=== PATIENT | female | born 1990 | race Caucasian/White ===

== ENCOUNTER 2016-05-01 12:12 | Outpatient (CLI) | payer BC, OTHER ==
[~2016-05-01] VITALS: Ht 160 cm; Wt 108.9 kg
[~2016-05-01 12:12] MED LIST: BENZ56AE TP; CEPH500C PO; CODE-54 PO; DBC1O30 TOP; DCS100C PO; FRS325T PO; IBP600T1 PO; PREN1TAB25 PO
--- OUTSIDE RECORDS SUMMARY | 2016-05-01 12:17 | XMS REPORT | Continuity of Care Document ---
Author Author [facility] Organization [facility] Address Unknown Phone Unavailable Allergies Active Description Code Type Severity Reaction Onset Reported/Identified Relationship to Patient Clinical Status Yes No Known Drug Allergies [id number] Drug Allergy Unknown N/ A 03/16/2014 Medications Problems Date Dx Coded Attending Type Code Diagnosis Diagnosed By 03/16/2014 KYA VARGAS DO Ot 599.0 03/16/2014 KYA VARGAS DO Ot 642.33 03/16/2014 KYA VARGAS DO Ot 646.63 03/16/2014 KYA VARGAS DO Ot 646.83 03/16/2014 KYA VARGAS DO Ot 784.0 03/25/2014 KYA VARGAS DO Ot 796.2 03/28/2014 KYA VARGAS DO Ot 216.5 BENIGN TERESO SKIN TRUNK 03/28/2014 KYA VARGAS DO Ot 285.1 AC POSTHEMORRHAG ANEMIA 03/28/2014 KYA VARGAS DO Ot 642.31 TRANS HYPERTEN-DELIVERED 03/28/2014 KYA VARGAS DO Ot 648.21 ANEMIA-DELIVERED 03/28/2014 KYA VARGAS DO Ot 658.21 PROLONG RUPT MEMB-DELIV 03/28/2014 KYA VARGAS DO Ot 664.21 DEL W 3 DEG LACERAT-DEL 03/28/2014 KYA VARGAS DO Ot V06.1 [id number], COMBINED [ 03/28/2014 KYA VARGAS DO Ot V06.4 [id number] 03/28/2014 KYA VARGAS DO Ot V27.0 DELIVER-SINGLE LIVEBORN 04/03/2014 KYA VARGAS DO Ot 796.2 Procedures Code Description Performed By Performed On 73.4 03/27/2014 75.62 03/27/2014 86.3 03/27/2014 Results Encounters ACCT No. Visit Date/Time Discharge Status Pt. Type Provider Facility Loc./Unit Complaint [id number] 03/25/2014 17:45:00 2014 12:45:00 DIS Inpatient KYA VARGAS DO [facility] LDRP INDUCTION [id number] 03/18/2014 07:30:00 2014 23:59:59 CLS Outpatient KYA VARGAS DO [facility] LAB [id number] 03/16/2014 20:29:00 2014 22:55:00 DIS Outpatient KYA VARGAS DO [facility] WSo [id number] 05/01/2016 12:12:00 ACT Outpatient BRAD MORRIS, KEV [facility] BABY NOT MOVING
[2016-05-01 12:25] VITALS: BP 140/78
[2016-05-01] MEDS ORDERED: OSLT75C PO (13:10)
--- NOTE | 2016-05-02 15:18 | Physician Query-Final Dx ---
ASHELY ROMO 05/02/16 1518: Clinic Account Progress/Dx Physician Query: Please give diagnosis Date of Service May 01, 2016 at 12:12 KEV SALINAS MD 05/03/16 0825: Clinic Account Progress/Dx DIAGNOSIS: Diagnosis decreased movement ASHELY ROMO May 02, 2016 15:18 KEV SALINAS MD May 03, 2016 08:25
[2016-06-03] MEDS ORDERED: IBUP-1773 PO (04:08)
[2016-06-03] MEDS ORDERED: BENZ56AE2 TP (04:08)
[2016-06-03] MEDS ORDERED: ACET1TAB43 PO (04:08)
[2016-06-03] MEDS ORDERED: DOCU100C37 PO (04:08)
== END 2016-05-01 13:18 | disposition home or self-care (01) ==
LOC: WSo 12:12 → LDRP 12:12 → WSo 13:18
PROVIDERS: ATTEND Obstetrics & Gynecology
DX: O36.8130 Decreased fetal movements, third trimester, not applicable or unspecified (principal); Z3A.35 35 weeks gestation of pregnancy
CPT/HCPCS: 99214

== ENCOUNTER 2016-06-02 15:15 | Inpatient (IN) | payer BC ==
[~2016-06-02] VITALS: Ht 160 cm; Wt 110.2 kg
[~2016-06-02 15:15] MED LIST changes: +OSLT75C PO
[2016-06-02] MEDS ORDERED: D5 LR IV SOLUTION 1,000 ML IV ONE (17:49)
[2016-06-02] MEDS ORDERED: MISOPROSTOL 100 MCG (CYTOTEC) TAB ONE (17:49)
[2016-06-02] MEDS ORDERED: MINERAL OIL CONCENTRATE 99.9% 15 ML UDC TOP PRN (18:00)
[2016-06-02] MEDS ORDERED: MISOPROSTOL 100 MCG (CYTOTEC) TAB PO NR (18:00)
[2016-06-02 18:01] LABS: BASOPHILS % (AUTO) 0 % (0-10); EOSINOPHILS # (AUTO) 0.1 10^3/uL (0.0-0.3); EOSINOPHILS % (AUTO) 1 % (0-10); LYMPHOCYTES # (AUTO) 1.8 X 10^3 (1.0-4.0); LYMPHOCYTES % (AUTO) 17 % (12-44); MEAN CORPUSCULAR HEMOGLOBIN 29 PG (25-34); MEAN CORPUSCULAR HGB CONC 34 G/DL (32-36); MEAN CORPUSCULAR VOLUME 84 FL (80-99); MEAN PLATELET VOLUME 10.8 FL (7.4-10.4); MONOCYTES # (AUTO) 0.5 X 10^3 (0.0-1.0); MONOCYTES % (AUTO) 5 % (0-12); NEUTROPHILS # (AUTO) 8.6 X 10^3 (1.8-7.8); NEUTROPHILS % (AUTO) 78 % (42-75); PLATELET COUNT 247 10^3/uL (130-400); RED BLOOD COUNT 4.23 10^6/uL (4.35-5.85); RED CELL DISTRIBUTION WIDTH 14.1 % (10.0-14.5)
[2016-06-02] MEDS: D5 LR IV SOLUTION 1,000 ML IV SCH (18:05)
[2016-06-02 19:27] VITALS: BP 133/87
[2016-06-02 20:27] VITALS: BP 127/84
[2016-06-02 21:28] VITALS: BP 118/80
[2016-06-02] MEDS ORDERED: CATHETER FLUSH 10 ML SYR IV SCH (22:00)
[2016-06-02] MEDS ORDERED: MISOPROSTOL 100 MCG (CYTOTEC) TAB PO SCH (22:00)
[2016-06-02 22:15] VITALS: BP 137/83
[2016-06-02 23:15] VITALS: BP 139/81
[2016-06-02] MEDS ORDERED: HYDROmorphone (DILAUDID) 2 MG/ML VIAL IVP ONE (23:15)
[2016-06-02] MEDS ORDERED: LACTATED RINGERS 1,000 ML IV SCH (23:20)
[2016-06-03] VITALS (30 sets, daily range): BP systolic 102–168; BP diastolic 52–108
[2016-06-03] MEDS ORDERED: SUFENTA 0.6MCG/ML BUPIVA 0.125 100 ML ONE (00:51)
[2016-06-03] MEDS ORDERED: fentaNYL INJECTION 100 MCG/2 ML AMP ONE (01:32)
[2016-06-03] MEDS ORDERED: BUPIVACAINE 0.25% 30 ML (SENSORCAINE) VIAL ONE (01:32)
[2016-06-03] MEDS: D5 LR IV SOLUTION 1,000 ML IV SCH (01:51)
[2016-06-03] MEDS ORDERED: LACTATED RINGERS 1,000 ML IV ONE (02:37)
[2016-06-03] MEDS ORDERED: LACTATED RINGERS 1,000 ML IV SCH (02:39)
[2016-06-03] MEDS ORDERED: CATHETER FLUSH 10 ML SYR IV PRN (02:45)
[2016-06-03] MEDS ORDERED: EPIDURAL (SUFENTA 0.6MCG/ML BUPIVA 0.125%) 100 ML BAG EPI SCH (02:45)
[2016-06-03] MEDS ORDERED: ONDANSETRON 4 MG/2 ML (SDV) Z0FRAN IV PRN (02:45)
[2016-06-03] MEDS ORDERED: METOCLOPRAMIDE INJ 10 MG/2 ML (REGLAN) IV PRN (02:45)
[2016-06-03] MEDS ORDERED: diphenhydrAMINE 50 MG/ML INJ (BENADRYL) IV PRN (02:45)
[2016-06-03] MEDS ORDERED: NALOXONE 0.4 MG/ML 1 ML (NARCAN) VIAL IV PRN ×3 (02:45)
[2016-06-03] MEDS ORDERED: EPIDURAL (SUFENTA 0.6MCG/ML BUPIVA 0.125%) 100 ML BAG EPI PRN (02:45)
[2016-06-03] MEDS ORDERED: OXYTOCIN/NORMAL SALINE 500 ML IV ONE (03:13)
[2016-06-03] MEDS ORDERED: LIDOCAINE/EPI 1%-1:200,000 (XYLOCAINE) 30 ML VIAL ONE (03:25)
[2016-06-03] MEDS: OXYTOCIN/NORMAL SALINE 500 ML IV SCH ×2 (03:39→04:14)
[2016-06-03] MEDS ORDERED: BENZOCAINE/MENTHOL (DERMOPLAST) 56 ML CAN TP PRN (04:00)
[2016-06-03] MEDS ORDERED: MEASLES,MUMPS,RUBELLA 1 EA INJ SQ ONE (04:00)
[2016-06-03] MEDS ORDERED: DIBUCAINE (NUPERCAINAL) 1% OINT 30 GM TOP PRN (04:00)
[2016-06-03] MEDS ORDERED: TETANUS,DIPTH,PERTUSS P/F (BOOSTRIX) 0.5 ML VIAL IM ONE (04:00)
--- NOTE | 2016-06-03 04:01 | History & Physical-OB ---
OB - Chief Complaint & HPI Date Date of Admission: Date of Admission: Jun 02, 2016 at 16:50 Chief Complaint/History OB-Reason for Admission/Chief: Induction of Labor Hx : 2 Hx Para: 1 Expected Date of Delivery: Jun 02, 2016 Gestational Age in Weeks: 40 Indication for induction: post dates, other (GHTN) Other reason for admission: Induction of labor for GHTN and Postdates Admission Nurse Assessment Rev: Yes History of Labs O pos Antibody neg RI RPR NR HBsAg NR HIV NR GC neg GBS neg Allergies and Home Medications Allergies Coded Allergies: No Known Drug Allergies (Unverified , 03/16/14) Home Medications Oseltamivir Phosphate 75 Mg Cap, 75 MG PO BID for 5 Days, (Reported) Vit#96/Ferrous Fum/Fa 1 Each Tablet, 1 EACH PO DAILY, (Reported) OB - History Hx of Present Care: Yes Ultrasounds: Normal mid trimester US Obstetrical Complications: None Medical Complications: None Obstetrical History Hx Termination: No Hx Multiple Gestation: No Hx Stillbirth: No Hx Complication: No Hx Induced Hypertens: Yes Hx Maternal Gestational Diabet: No Delivery History Hx Dystocia: No Hx Large For Gestational Age I: No Hx Small for Gestational Age I: No Hx Section: No Hx Vaginal Delivery Post C-Sec: No Hx Blood Disorders: No Adverse Rxn to Tranfusion: No Patient Past Medical History n/a Social History/Family History HIV/AIDS: No Recent Infectious Disease Expo: No Sexually Transmitted Disease: No Alcohol Use: Denies Use Recreational Drug Use: No Immunizations Hepatitis A: Yes Hepatitis B: Yes Date of Influenza Vaccine: Jan 02, 2016 OB - Admission Exam Physical Exam Vitals: Vital Signs 06/02/16 06/02/16 22:15 23:15 Temp 98.9 Pulse 77 Resp 18 B/P (MAP) 139/81 O2 Delivery Room Air HEENT: NCAT Heart: Rhythm Normal Lungs: Clear Abdomen: Gravid Extremities: Normal Reflexes: Normal Cervical Dilatation: 1cm Effacement: 75% Station: -2 Membranes: Intact Heart Rate: 130's Accelerations: Accelerations Present Decelerations: No Decelerations Short Term Variability: Present Fpc Variability: Average (6-25) Contractions on Admission: >10 Minutes Apart Intensity: Mild Fraga Scoring Tool (Modified) Dilation (cm): 1-2cm (1) Effacement (%): 51-79% (2) Descent/Station: -1,0 (2) Cervix Consistency: Soft (2) Cervix Position: Anterior (2) Fraga Score: 9 Labs Laboratory Tests Test 06/02/16 17:25 Range/Units White Blood Count 11.0 4.3-11.0 10^3/uL Red Blood Count 4.23 L 4.35-5.85 10^6/uL Hemoglobin 12.2 11.5-16.0 G/DL Hematocrit 36 35-52 % Mean Corpuscular Volume 84 80-99 FL Mean Corpuscular Hemoglobin 29 25-34 PG Mean Corpuscular Hemoglobin Concent 34 32-36 G/DL Red Cell Distribution Width 14.1 10.0-14.5 % Platelet Count 247 130-400 10^3/uL Mean Platelet Volume 10.8 H 7.4-10.4 FL Neutrophils (%) (Auto) 78 H 42-75 % Lymphocytes (%) (Auto) 17 12-44 % Monocytes (%) (Auto) 5 0-12 % Eosinophils (%) (Auto) 1 0-10 % Basophils (%) (Auto) 0 0-10 % Neutrophils # (Auto) 8.6 H 1.8-7.8 X 10^3 Lymphocytes # (Auto) 1.8 1.0-4.0 X 10^3 Monocytes # (Auto) 0.5 0.0-1.0 X 10^3 Eosinophils # (Auto) 0.1 0.0-0.3 10^3/uL Basophils # (Auto) 0.0 0.0-0.1 10^3/uL OB - Assessment/Plan/Diagnosis Assessment Assessment: induction of labor Plan Induction Method: per Misoprostol Protocol Discharge Diagnosis Diagnosis: 26 yo @ 40.0 GHTN Postdates GBS neg KYA VARGAS DO Jun 03, 2016 04:01
--- NOTE | 2016-06-03 04:06 | OB Labor & Delivery Record ---
L&D History Date of Service Date of Service: Jun 03, 2016 History Expected Date of Delivery: Jun 02, 2016 Gestational Age in Weeks: 40 Hx : 2 Hx Para: 1 Complications Events: Routine care Operative Indications (Cesarea: N/A-Vaginal Delivery Intrapartal Events: None L&D Stage1 Stage One Onset of Labor - Date: Jun 02, 2016 Monitors and Tracing Monitor Mode: External Heart Rate: 135 Monitor Accelerations: Uniform Monitor Decelerations: None Station: -2 Short Term Variability: Present Presentation: Vertex Vital Signs VS - Last 72 Hours, by Label 06/02/16 06/02/16 06/02/16 06/02/16 19:27 20:27 21:28 22:15 Temp 98.4 98.9 Pulse 86 82 75 90 Resp 18 18 18 18 B/P (MAP) 133/87 127/84 118/80 137/83 O2 Delivery Room Air Room Air Room Air Room Air 06/02/16 23:15 Pulse 77 Resp 18 B/P (MAP) 139/81 O2 Delivery Room Air Rupture of Membranes Spontaneous Ruture of Membrane: Yes Amniotic Membrane Rupture Time: 02:00 Amniotic Membrane Fluid Desc.: Meconium Stained Vaginal Bleeding Description: Normal Show Induction/Anesthesia Epidural Cath Placement - Time: 0145 Progress/Notes Patient was given one dose of oral misoprostol 100 mcg, and progressed into an active labor pattern, she received an epidural at 4 cm dilatation L&D Stage2 Stage Two Stage II Date: Jun 03, 2016 Monitors and Tracing Monitor Mode: External Heart Rate: 135 Monitor Accelerations: Uniform Monitor Decelerations: Variable Applications Coordinator Variability: Average (6-10) Short Term Variability: Present Position: Right Occiput Anterior Presentation: Vertex Cord Descript/Complications Cord Vessel Description: 3 Vessels Delivery Type Infant Delivery Method: Spontaneous Vaginal Anterior Shoulder: Left Episiotomy/Perineal Laceration Laceraction(s)/Extensions: Yes Episiotomy Description: Midline, Perineal Extension/lac, 2nd degree Location Modifier: Medial Sutures Used: Vicryl Degree (describe repair) midline laceration repaired using 3-0 and 2-0 vicryl suture in normal fashion Condition of Infant Delivery 1 minute Comment: 9 5 minute Comment: 9 Notes live male , weight 8lbs Condition of Condition of Infant: Living Exam: No Observed Abnormalities Resuscitation Resuscitation: N/A - Spontaneous Resp L&D Stage3 Stage Three Stage III Date: Jun 03, 2016 Pictocin Pitocin Administration Comment: wide open 30 mu after delivery of placenta Placenta Delivery Placenta Delivery: Spontaneous Delivery Summary Summary blood loss >1000ml: No Vaginal blood loss >500ml: No 350 mL Attending at delivery: Kya Vargas DO Condition of Delivery Examined: Cervix Examined, Uterus Explored Post Hemorrhage: No Condition of Mother stable Condition of Infant (s) stable KYA VARGAS DO Jun 03, 2016 04:05
[2016-06-03] MEDS ORDERED: ACET1TAB43 PO (04:08)
[2016-06-03] MEDS ORDERED: BENZ56AE2 TP (04:08)
[2016-06-03] MEDS ORDERED: DOCU100C37 PO (04:08)
[2016-06-03] MEDS ORDERED: IBUP-1773 PO (04:08)
--- NOTE | 2016-06-03 04:09 | Discharge Inst-Women's Service ---
Discharge Inst-Women's Serv Depart Medication/Instructions New, Converted or Re-Newed RX: RX on Chart Consults/Follow Up Additional Follow Up: Yes Orders/Referrals Dr. Vargas in 6 weeks Activity Activity: Activity as Tolerated Driving Instructions: No Driving for 1 Week NO SMOKING: NO SMOKING Nothing Inside Vagina: No Douching, No [place], No Tampons Diet Discharge Diet: No Restrictions Symptoms to Report to : Bleeding Excessive, Pain Increased, Fever Over 101 Degrees F, Vaginal Bleeding Increase, Questions/Concerns For Any Problems or Questions: Contact Your Physician Skin/Wound Care Bathing Instructions: Shower (x 2 weeks) KYA VARGAS DO Jun 03, 2016 04:09
[2016-06-03] MEDS ORDERED: CATHETER FLUSH 10 ML SYR IV SCH (06:00)
[2016-06-03] MEDS: IBUPROFEN 600 MG (MOTRIN) TAB PO SCH ×3 (06:56→17:41)
[2016-06-03] MEDS: WITCH HAZEL(TUCKS) 40 EA JAR TOP PRN (06:57)
[2016-06-03] MEDS: FERROUS SULF 325 MG (IRON) TAB PO SCH (08:08)
[2016-06-03] MEDS: DOCUSATE SODIUM 100 MG (COLACE) CAP PO SCH ×2 (08:08→20:55)
[2016-06-03] MEDS: PRENATAL VITAMIN 1 EA TAB PO SCH (08:08)
[2016-06-04] MEDS: IBUPROFEN 600 MG (MOTRIN) TAB PO SCH ×3 (00:44→12:40)
[2016-06-04 00:45] VITALS: BP 102/66
[2016-06-04 06:22] LABS: BASOPHILS % (AUTO) 0 % (0-10); EOSINOPHILS # (AUTO) 0.1 10^3/uL (0.0-0.3); EOSINOPHILS % (AUTO) 1 % (0-10); LYMPHOCYTES # (AUTO) 2.8 X 10^3 (1.0-4.0); LYMPHOCYTES % (AUTO) 29 % (12-44); MEAN CORPUSCULAR HEMOGLOBIN 29 PG (25-34); MEAN CORPUSCULAR HGB CONC 34 G/DL (32-36); MEAN CORPUSCULAR VOLUME 87 FL (80-99); MEAN PLATELET VOLUME 10.4 FL (7.4-10.4); MONOCYTES # (AUTO) 0.5 X 10^3 (0.0-1.0); MONOCYTES % (AUTO) 5 % (0-12); NEUTROPHILS # (AUTO) 6.3 X 10^3 (1.8-7.8); NEUTROPHILS % (AUTO) 65 % (42-75); PLATELET COUNT 206 10^3/uL (130-400); RED BLOOD COUNT 3.46 10^6/uL (4.35-5.85); WHITE BLOOD COUNT 9.7 10^3/uL (4.3-11.0)
[2016-06-04 06:30] VITALS: BP 130/86
--- NOTE | 2016-06-04 08:10 | Progress Note-Standard ---
Standard Progress Note Progress Notes/Assess & Plan Progress/Assessment & Plan Patient doing well this AM. Reports light lochia, pain well controlled. Ambulating and voiding freely. Vital Sign - Last 24 Hours 06/03/16 06/03/16 06/03/16 06/04/16 12:35 17:48 20:55 00:45 Temp 97.6 97.1 98.2 98.2 Pulse 71 81 88 83 Resp 16 18 18 18 B/P (MAP) 124/86 124/79 127/83 102/66 Pulse Ox 98 99 O2 Delivery Room Air Room Air Room Air Room Air 06/04/16 06:30 Temp 97.5 Pulse 85 Resp 18 B/P (MAP) 130/86 O2 Delivery Room Air Laboratory Tests Test 06/04/16 05:52 Range/Units White Blood Count 9.7 4.3-11.0 10^3/uL Red Blood Count 3.46 L 4.35-5.85 10^6/uL Hemoglobin 10.1 L 11.5-16.0 G/DL Hematocrit 30 L 35-52 % Mean Corpuscular Volume 87 80-99 FL Mean Corpuscular Hemoglobin 29 25-34 PG Mean Corpuscular Hemoglobin Concent 34 32-36 G/DL Red Cell Distribution Width 14.0 10.0-14.5 % Platelet Count 206 130-400 10^3/uL Mean Platelet Volume 10.4 7.4-10.4 FL Neutrophils (%) (Auto) 65 42-75 % Lymphocytes (%) (Auto) 29 12-44 % Monocytes (%) (Auto) 5 0-12 % Eosinophils (%) (Auto) 1 0-10 % Basophils (%) (Auto) 0 0-10 % Neutrophils # (Auto) 6.3 1.8-7.8 X 10^3 Lymphocytes # (Auto) 2.8 1.0-4.0 X 10^3 Monocytes # (Auto) 0.5 0.0-1.0 X 10^3 Eosinophils # (Auto) 0.1 0.0-0.3 10^3/uL Basophils # (Auto) 0.0 0.0-0.1 10^3/uL Uterine fundus firm and below umbilicus Diagnosis: PPD 1 NVD P: Continue routine PP care Anticipate dc later today. KYA VARGAS DO Jun 04, 2016 8:10 am
[2016-06-04] MEDS: PRENATAL VITAMIN 1 EA TAB PO SCH (08:13)
[2016-06-04] MEDS: DOCUSATE SODIUM 100 MG (COLACE) CAP PO SCH (08:13)
[2016-06-04] MEDS: FERROUS SULF 325 MG (IRON) TAB PO SCH (08:13)
[2016-06-04] MEDS: APAP 300 MG/CODEINE 30 MG (TYLENOL #3) TAB PO PRN ×2 (08:14→12:45)
[2016-06-04] MEDS: WITCH HAZEL(TUCKS) 40 EA JAR TOP PRN (10:23)
[2016-06-04 12:40] VITALS: BP 125/84
--- OUTSIDE RECORDS SUMMARY | 2016-07-03 22:31 | XMS REPORT | Continuity of Care Document ---
Author Author [facility] Organization [facility] Address Unknown Phone Unavailable Allergies Active Description Code Type Severity Reaction Onset Reported/Identified Relationship to Patient Clinical Status Yes No Known Drug Allergies [id number] Drug Allergy Unknown N/ A 03/16/2014 Medications Problems Date Dx Coded Attending Type Code Diagnosis Diagnosed By 03/16/2014 KYA VARGAS DO Ot 599.0 URIN TRACT INFECTION NOS 03/16/2014 KYA VARGAS DO Ot 642.33 TRANS HYPERTEN-ANTEPART 03/16/2014 KYA VARGAS DO Ot 646.63 INFECTION-ANTEPARTUM 03/16/2014 KYA VARGAS DO Ot 646.83 PREG COMPL NEC-ANTEPART 03/16/2014 KYA VARGAS DO Ot 784.0 HEADACHE 03/25/2014 KYA VARGAS DO Ot 796.2 03/28/2014 [...] LACERAT-DEL 03/28/2014 KYA VARGAS DO Ot V06.1 [id number], COMBINED [ 03/28/2014 KYA VARGAS DO Ot V06.4 [id number] 03/28/2014 KYA VARGAS DO Ot V27.0 DELIVER-SINGLE LIVEBORN 04/03/2014 KYA VARGAS DO Ot 796.2 05/01/2016 KYA VARGAS DO Ot 796.2 ELEV BL PRES W/O HYPERTN 05/01/2016 KEV SALINAS MD Kiana Srinath O36.8130 DECREASED MOVEMENTS, THIRD TRIMEST 05/01/2016 KEV SALINAS MD Kiana Srinath Z3A.35 35 WEEKS GESTATION OF 05/04/2016 BRAD MORRIS KEV Kiana Srinath O36.8130 DECREASED MOVEMENTS, THIRD TRIMEST 05/04/2016 KEV SALINAS MD, Ot Z3A.35 35 WEEKS GESTATION OF 06/03/2016 KYA VARGAS DO Ot 796.2 ELEV BL PRES W/O HYPERTN 06/04/2016 KYA VARGAS DO Ot O13.3 GESTATIONAL HTN W/O SIGNIFICANT PROTEINU 06/04/2016 KYA VARGAS DO Ot O48.0 POST-TERM 06/04/2016 KYA VARGAS DO Ot O70.1 SECOND DEGREE PERINEAL LACERATION DURING 06/04/2016 KYA VARGAS DO Ot Z37.0 SINGLE LIVE 06/04/2016 KYA VARGAS DO Ot Z3A.40 40 WEEKS GESTATION OF Procedures Code Description Performed By Performed On 73.4 03/27/2014 75.62 03/27/2014 86.3 03/27/2014 [id number] REPAIR PERINEUM MUSCLE, OPEN APPROACH 06/03/2016 [id number] DELIVERY OF PRODUCTS OF CONCEPTION, EXTE 06/03/2016 Results Test Result Range Complete blood count (CBC) with automated white blood cell (WBC) differential - 06/02/16 17:25 Blood leukocytes automated count (number/volume) 11.0 10*3/ uL 4.3-11.0 Blood erythrocytes automated count (number/volume) 4.23 10*6 /uL 4.35-5.85 Venous blood hemoglobin measurement (mass/volume) 12.2 g/dL 11.5-16.0 Blood hematocrit (volume fraction) 36 % 35-52 Automated erythrocyte mean corpuscular volume 84 [foz_us] 80-99 Automated erythrocyte mean corpuscular hemoglobin (mass per erythrocyte) 29 pg 25-34 Automated erythrocyte mean corpuscular hemoglobin concentration measurement ( mass/volume) 34 g/dL 32-36 Automated erythrocyte distribution width ratio 14.1 % 10.0-14.5 Automated blood platelet count (count/volume) 247 10*3/uL 130-400 Automated blood platelet mean volume measurement 10.8 [foz_ us] 7.4-10.4 Automated blood neutrophils/100 leukocytes 78 % 42-75 Automated blood lymphocytes/100 leukocytes 17 % 12-44 Blood monocytes/100 leukocytes 5 % 0-12 Automated blood eosinophils/100 leukocytes 1 % 0-10 Automated blood basophils/100 leukocytes 0 % 0-10 Blood neutrophils automated count (number/volume) 8.6 10*3 1.8-7.8 Blood lymphocytes automated count (number/volume) 1.8 10*3 1.0-4.0 Blood monocytes automated count (number/volume) 0.5 10*3 0.0-1.0 Automated eosinophil count 0.1 10*3/uL 0.0-0.3 Automated blood basophil count (count/volume) 0.0 10*3/uL 0.0-0.1 Blood type T Indirect antibody screen panel - 06/02/16 17:25 ABO+Rh group OP NRG Transfusion band number [id number] NRG Blood group antibody screen NEGATIVE NR Complete blood count (CBC) with automated white blood cell (WBC) differential - 06/04/16 05:52 Blood leukocytes automated count (number/volume) 9.7 10*3/ uL 4.3-11.0 Blood erythrocytes automated count (number/volume) 3.46 10*6 /uL 4.35-5.85 Venous blood hemoglobin measurement (mass/volume) 10.1 g/dL 11.5-16.0 Blood hematocrit (volume fraction) 30 % 35-52 Automated erythrocyte mean corpuscular volume 87 [foz_us] 80-99 Automated erythrocyte mean corpuscular hemoglobin (mass per erythrocyte) 29 pg 25-34 Automated erythrocyte mean corpuscular hemoglobin concentration measurement ( mass/volume) 34 g/dL 32-36 Automated erythrocyte distribution width ratio 14.0 % 10.0-14.5 Automated blood platelet count (count/volume) 206 10*3/uL 130-400 Automated blood platelet mean volume measurement 10.4 [foz_ us] 7.4-10.4 Automated blood neutrophils/100 leukocytes 65 % 42-75 Automated blood lymphocytes/100 leukocytes 29 % 12-44 Blood monocytes/100 leukocytes 5 % 0-12 Automated blood eosinophils/100 leukocytes 1 % 0-10 Automated blood basophils/100 leukocytes 0 % 0-10 Blood neutrophils automated count (number/volume) 6.3 10*3 1.8-7.8 Blood lymphocytes automated count (number/volume) 2.8 10*3 1.0-4.0 Blood monocytes automated count (number/volume) 0.5 10*3 0.0-1.0 Automated eosinophil count 0.1 10*3/uL 0.0-0.3 Automated blood basophil count (count/volume) 0.0 10*3/uL 0.0-0.1 Encounters ACCT No. Visit Date/Time Discharge Status Pt. Type Provider Facility Loc./Unit Complaint [id number] 06/02/2016 16:50:00 2016 13:20:00 DIS Inpatient KYA VARGAS DO [facility] LDRP INDUCTION [id number] 05/01/2016 12:12:00 2016 13:18:00 DIS Outpatient KEV SALINAS MD [facility] WSo BABY NOT MOVING [id number] 03/25/2014 17:45:00 2014 12:45:00 DIS Inpatient KYA VARGAS DO [facility] LDRP INDUCTION [id number] 03/18/2014 07:30:00 2014 23:59:59 CLS Outpatient KYA VARGAS DO [facility] LAB ELEVATED BP [id number] 03/16/2014 20:29:00 2014 22:55:00 DIS Outpatient KYA VARGAS DO [facility] WSo ELEVATED BLOOD PRESSURE
== END 2016-06-04 13:20 | disposition home or self-care (01) | DRG 775 ==
LOC: LDRP 16:50
PROVIDERS: ADMIT Obstetrics & Gynecology; ATTEND Obstetrics & Gynecology
PROC: 10E0XZZ Delivery of Products of Conception, External Approach (ICD-10-PCS; principal; 2016-06-03)
PROC: 0KQM0ZZ Repair Perineum Muscle, Open Approach (ICD-10-PCS; 2016-06-03)
DX: O13.3 Gestational [pregnancy-induced] hypertension without significant proteinuria, third trimester (principal); O70.1 Second degree perineal laceration during delivery; O48.0 Post-term pregnancy; Z3A.40 40 weeks gestation of pregnancy; Z37.0 Single live birth
CPT/HCPCS: 36415; 85025; 86850; 86900; 86901